=== PATIENT | male | born 1995 | race Caucasian/White ===

== ENCOUNTER 2019-07-05 20:44 | Emergency (ER) | payer SELFPAY ==
[2019-07-05 20:44] VITALS: BP 128/72; PULSE 88; RESP 15; TEMP 36.6; O2SAT 99; BMI 23.7
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
[2019-07-05] MEDS: HYDROcodone Bitartrate/Apap 5/325 Tablet PO (21:11)
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
[2019-07-05 22:29] VITALS: BP 108/76; PULSE 80; RESP 16; O2SAT 100
== END 2019-07-05 22:29 | disposition home or self-care (01) ==
PROVIDERS: Emergency Provider Emergency Medicine
DX: S00.31XA Abrasion of nose, initial encounter (principal); S00.83XA Contusion of other part of head, initial encounter; V47.5XXA Car driver injured in collision with fixed or stationary object in traffic accident, initial encounter; Y92.410 Unspecified street and highway as the place of occurrence of the external cause; F17.200 Nicotine dependence, unspecified, uncomplicated; J32.0 Chronic maxillary sinusitis
CPT/HCPCS: 70450; 70486; 73564; 99283

== ENCOUNTER 2023-01-05 22:38 | Emergency (ER) | payer SELFPAY ==
[2023-01-05 22:42] VITALS: BP 165/89; PULSE 129; RESP 16; TEMP 36.8; O2SAT 97; BMI 30.9
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
--- NOTE | 2023-01-05 23:21 | RAD_ITS ---
EXAM: XR LEFT HUMERUS, 2 OR MORE VIEWS CLINICAL INDICATION: pain TECHNIQUE: Frontal and lateral views of the left humerus. COMPARISON: Left forearm radiographs of this date. FINDINGS: BONES/JOINTS: The proximal radius and ulna are dislocated posteriorly relation to the distal humerus. No acute fracture is identified. No left AC joint widening. There is no dislocation of the shoulder. The visualized left ribs are intact. Preservation of the joint space. No sclerotic or destructive changes observed. SOFT TISSUES: Soft tissue swelling about the elbow. No radiopaque foreign body. RAD/Humerus min 2 Views IMPRESSION: Posterior dislocation of the left elbow. Electronically Signed: Nestor Chan MD at 23:50 EDT ,
[2023-01-05 23:49] VITALS: BP 161/115; PULSE 112; RESP 16; O2SAT 97
[2023-01-06] VITALS (8 sets, daily range): BP systolic 124–155; BP diastolic 88–117; PULSE 89–109; RESP 17–19; TEMP 37.1; O2SAT 15–100
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
[2023-01-06] MEDS: Propofol 200 MG/20 ML Vial IV BOLUS (01:15)
--- NOTE | 2023-01-06 01:17 | RAD_ITS ---
EXAM: XR LEFT ELBOW, 2 VIEWS CLINICAL INDICATION: post reduction TECHNIQUE: Frontal and lateral views of the left elbow. COMPARISON: Left elbow and forearm radiographs of this date. FINDINGS: BONES/JOINTS: The previously noted elbow dislocation has been reduced; the proximal radius and ulna are now in anatomic alignment with the distal humerus. No acute fracture is identified but evaluation of the osseous anatomic detail is limited by surrounding cast material. The joint spaces are symmetric. Clear space between the proximal radius and ulna is not widened. SOFT TISSUES: Soft tissue swelling about the elbow. No radiopaque foreign body. RAD/Elbow 2 Views IMPRESSION: Interval reduction of the previously noted elbow dislocation. No acute fracture identified on the post reduction views. Electronically Signed: Nestor Chan MD at 3:21 EDT ,
== END 2023-01-06 03:02 | disposition home or self-care (01) ==
PROVIDERS: Emergency Provider Emergency Medicine; Visit Provider Emergency Medicine
DX: S53.125A Posterior dislocation of left ulnohumeral joint, initial encounter (principal); Z87.891 Personal history of nicotine dependence; V89.2XXA Person injured in unspecified motor-vehicle accident, traffic, initial encounter; Z23 Encounter for immunization
CPT/HCPCS: 24605; 73060; 73070; 73090; 73130; 90471; 99285; J7030; A4216

== ENCOUNTER 2024-05-14 14:22 | Emergency (ER) | payer SELFPAY ==
[2024-05-14 14:24] VITALS: BP 124/94; PULSE 94; RESP 18; TEMP 36.6; O2SAT 97; BMI 29.2
--- NOTE | 2024-05-14 16:52 | EDS_ITS ---
HPI HPI - URI History of Present Illness Chief Complaint: Ear Problem Informant: patient Narrative Narrative: Patient is a 28-year-old male denies any significant past medical history (states he had ear infections as a child) presenting with bilateral hearing loss nasal congestion for the past 2 weeks. Patient states it started with a cold/flulike syndrome. He states he was pretty sick at first but is improved however his hearing has not gotten better. He states he still feels congested. He has had a mild headache and feels that there is drainage from his nose. Has not tried any oikj-pxj-zxiiixv medications. Denies any fevers. Denies any difficulty breathing. Initially had a sore throat that is improved. No other complaints or concerns reported at this time. ROS ROS ED Constitutional Constitutional ED: Denies chills or fever(s) Eyes Eyes: Denies change in vision ENT ENT ED: Reports ear pain bilateral, rhinorrhea and other Details: nasal congestion, hearing loss b/l Cardiovascular Cardiovascular: Denies chest pain Respiratory/Chest Respiratory/Chest: Denies cough Gastrointestinal Gastrointestinal: Denies nausea or vomiting Integumentary Denies rash Neurologic Neurologic: Reports headache(s) PFSH PFSH Home Medications ?Medication ?Instructions ?Recorded ?Last Taken ?Type amoxicillin 875 mg-potassium 875 mg PO Q12H #20 TABLETS 05/14/24 Unknown Rx clavulanate 125 mg tablet fluticasone propionate 50 1 spray intranasal DAILY #16 grams 05/14/24 Unknown Rx mcg/actuation nasal spray,suspension (Flonase Allergy Relief) prednisone 20 mg tablet 40 mg (2 x 20 mg) PO DAILY #10 tabs 05/14/24 Unknown Rx Allergy/AdvReac Type Severity Reaction Status Date / Time No Known Allergies Allergy Verified 05/14/24 14:23 Social History Smoking Status: Former smoker EXAM Physical Exam Const Vital Signs: 05/14/24 14:24 Temperature 97.9 F Temperature Source Temporal Pulse Rate 94 Respiratory Rate 18 Blood Pressure 124/94 H Blood Pressure Mean 104 Pulse Ox 97 Oxygen Delivery Method Room Air Positive well nourished and well developed General Appearance ED: well developed and NAD HEENT Reports moist mucous membranes HEENT Narrative: Left tympanic membrane?retracted, no air-fluid level appreciated. Slight injection present. Normal ear canal and external ear on the left Right panic membrane?retracted with purulence appreciated behind the upper part of the TM. There is injection of the TM. Loss of visualization of the landmarks behind the ear. Normal ear canal and external ear on the right. Patient has diminished hearing on the right ear and cannot hear crinkling of globs on fingers but can on the left. Normal nasal exam. No mastoid erythema normocephalic and atraumatic Face and Sinus: Negative for sinus tenderness Throat: tonsils abnormal bilateral (No exudates or erythema of the tonsils) hyp ertrophy Eyes PERRL and EOMs intact bilaterally Neck supple Resp normal respiratory effort and clear to auscultation bilaterally Cardio no murmurs Rate: regular rate Rhythm: regular rhythm Extremity normal to inspection and full ROM Neuro oriented x3 and CN's II-XII intact bilaterally Sensorium / Orientation: alert Motor Exam: Negative for general weakness Psych mental status grossly normal Skin Rashes: no rashes MDM MDM MDM Narrative Medical decision making narrative: Patient is evaluated for hearing loss. Patient is congestion and evidence of a recent URI. He has retracted bilateral panic membranes but he does have some purulence behind the right ear with significantly decreased hearing on the right. Because of 2 weeks of symptoms and physical exam findings will place patient on steroids as well as antibiotics. Patient will also be given a prescription for Flonase and referral to ENT as he does have significant hearing change. He is encouraged to also use soun-zqs-taosjss decongestants such as Sudafed to help with his symptoms. Is given return precautions. Is otherwise quite well-appearing no physical exam findings concerning for mastoiditis or systemic infection. Discharge Plan Triage Chief Complaint: Ear Problem ED Provider: Pat Barboza Dx/Rx/DC Orders Clinical Impression: Acute otitis media, right, Blocked eustachian tube, Hearing loss in right ear Instructions: ED Otitis Media Adult Prescriptions: New prednisone 20 mg tablet 40 mg PO DAILY Qty: 10 0RF amoxicillin-pot clavulanate 875-125 mg tablet 875 mg PO Q12H Qty: 20 0RF fluticasone propionate [Flonase Allergy Relief] 50 mcg/actuation spray,suspension 1 spray intranasal DAILY Qty: 16 0RF Rx Instructions: administer into each nostril Primary Care Provider: Care Physician,No Primary Referrals: Tommy Santiago MD [Med Staff - Active Staff] - 3-5 Days if not improving Care Physician,No Primary [Primary Care Provider] - Activity Restrictions/Additional Instructions: You may also take oypn-mew-dsgdrev Sudafed or other decongestants to help with your nasal congestion and ear complaint. Suspect there is a mixture of infection and inflammation from your recent cold that are causing her symptoms. Print Language: Setswana Disposition Disposition: Home, Self Care
[2024-05-14 17:12] VITALS: BP 118/64; PULSE 59; RESP 17; TEMP 36.7; O2SAT 100
== END 2024-05-14 17:13 | disposition home or self-care (01) ==
PROVIDERS: Emergency Provider Emergency Medicine; Visit Provider Emergency Medicine
DX: H66.001 Acute suppurative otitis media without spontaneous rupture of ear drum, right ear (principal); H92.11 Otorrhea, right ear; Z87.891 Personal history of nicotine dependence; H91.91 Unspecified hearing loss, right ear; R51.9 Headache, unspecified; H68.109 Unspecified obstruction of Eustachian tube, unspecified ear
CPT/HCPCS: 99282

== ENCOUNTER 2024-05-21 09:23 | Emergency (ER) | payer SELFPAY ==
[2024-05-21 09:24] VITALS: BP 126/78; PULSE 78; RESP 16; TEMP 37.1; O2SAT 98; BMI 29.2
--- NOTE | 2024-05-21 10:29 | EDS_ITS ---
HPI History of Present Illness Chief Complaint: Ear Problem Informant: patient Narrative Narrative: Presents with continued hearing loss right greater than left. Symptoms started 3 weeks ago. He states seen in ED a week ago he had some sinus congestion. He was placed on antibiotics nasal spray and prednisone. He states congestion is better however hearing loss is still there. He was referred to ENT locally however appointment not until over a month out. He did not know what to do therefore came back to the ED. 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 However denies any significant loud music when he was younger. Denies Q-tip use. Prior similar symptoms: Yes PFSH PFSH Home Medications ?Medication ?Instructions ?Recorded ?Last Taken ?Type amoxicillin 875 mg-potassium 875 mg PO Q12H #20 TABLETS 05/14/24 Unknown Rx clavulanate 125 mg tablet fluticasone propionate 50 1 spray intranasal DAILY #16 grams 05/14/24 Unknown Rx mcg/actuation nasal spray,suspension (Flonase Allergy Relief) prednisone 20 mg tablet 40 mg (2 x 20 mg) PO DAILY #10 tabs 05/14/24 Unknown Rx Allergy/AdvReac Type Severity Reaction Status Date / Time No Known Allergies Allergy Verified 05/21/24 09:24 Social History Smoking Status: Former smoker ROS ROS ED Constitutional Constitutional ED: Denies chills, fever(s) or sweats Eyes Eyes: Denies change in vision ENT ENT ED: Reports other Details: Hearing loss ; Denies dysphagia or sore throat Cardiovascular Cardiovascular: Denies chest pain, leg edema, palpitations or racing heartbeat Respiratory/Chest Respiratory/Chest: Denies cough, dyspnea or dyspnea on exertion Gastrointestinal Gastrointestinal: Denies abdominal pain, diarrhea, nausea or vomiting Genitourinary Genitourinary ED: Denies dysuria, hematuria or urinary frequency Musculoskeletal Musculoskeletal: Denies back pain, extremity pain or neck pain Integumentary Denies rash or wounds Neurologic Neurologic: Denies headache(s), paresthesias or weakness EXAM Physical Exam Const Vital Signs: 05/21/24 09:24 Temperature 98.8 F Temperature Source Oral Pulse Rate 78 Respiratory Rate 16 Blood Pressure 126/78 H Blood Pressure Mean 94 Pulse Ox 98 Oxygen Delivery Method Room Air Positive well nourished and well developed General Appearance ED: well developed and NAD HEENT Reports TM's clear and moist mucous membranes HEENT Narrative: TMs normal bilaterally no fluid behind the ears both intact. Normal external canals. normocephalic and atraumatic Tympanic Membrane ED: Yes TM's clear Eyes EOMs intact bilaterally and conjunctivae normal General Eye ED: Yes normal appearance of both eyes Neck no lymphadenopathy and supple General: Negative for tenderness Chest Wall Chest: Negative for tenderness Resp normal respiratory effort and normal air movement Effort and Inspection: symmetric chest movement; Negative for respiratory distress Cardio regular rate, regular rhythm and no murmurs Peripheral Pulses: pulses 2+ throughout GI normal to inspection, nondistended, normoactive bowel sounds and non-tender Palpation: Negative for guarding or rebound tenderness present Extremity normal to inspection General Extremety ED: Negative for edema or tenderness General Extremity: Negative for edema Neuro oriented x3 Sensorium / Orientation: awake and alert MDM MDM MDM Narrative Medical decision making narrative: Interventions / MDM: Differential diagnosis: Hearing loss Diagnosis considered but do not suspect: Ruptured TM however clinically intact. No clinical signs of infection. My EKG interpretation: N/A Imaging independently reviewed and interpreted by myself: N/A External documents reviewed: N/A Test considered but not ordered:N/A ED course: Patient reports hearing loss he has normal anatomy on exam. Discussed with patient he will need a hearing test which cannot be done through the emergency department. Discussed with him calling back ENT locally for cancellations. He is also given residency clinic information for ENT up in [place] for attempt follow-up for earlier evaluation and testing. No emergent findings were seen. All questions were answered. Re-evaluation: stable Disposition discussed with patient/family/significant other: Patient Case discussed with consulting clinician: N/A This note was generated with [employer] dictation software. It may contain incorrect words, spelling, and punctuation that were not noted in checking the note before signing. Discharge Plan Triage Chief Complaint: Ear Problem ED Provider: Tho Rivas Dx/Rx/DC Orders Clinical Impression: Hearing loss in right ear, Hearing loss in left ear Instructions: Understanding Hearing Loss Prescriptions: No Action prednisone 20 mg tablet 40 mg PO DAILY Qty: 10 0RF amoxicillin-pot clavulanate 875-125 mg tablet 875 mg PO Q12H Qty: 20 0RF fluticasone propionate [Flonase Allergy Relief] 50 mcg/actuation spray,suspension 1 spray intranasal DAILY Qty: 16 0RF Rx Instructions: administer into each nostril Stand Alone Forms: ED Work / School Excuse Primary Care Provider: Care Physician,No Primary Referrals: Christian Loyola MD [Med Staff - Active Staff] - As soon as possible Care Physician,No Primary [Primary Care Provider] - Activity Restrictions/Additional Instructions: Dr. Tristan Blas - [phone] May try ENT above, asked for the residency clinic to be seen for needed hearing test. Print Language: Urdu Disposition Disposition: Home, Self Care
== END 2024-05-21 10:33 | disposition home or self-care (01) ==
PROVIDERS: Emergency Provider Emergency Medicine; Visit Provider Emergency Medicine
DX: H91.93 Unspecified hearing loss, bilateral (principal); Z87.891 Personal history of nicotine dependence
CPT/HCPCS: 99282